=== PATIENT | female | born 1985 | race Caucasian/White ===

== ENCOUNTER → 2017-10-31 | Outpatient (CLI) | payer BC, OTHER ==
[2014-09-22 10:43] VITALS: BMI 31.5
[~2017-10-31] MED LIST: Amoxicillin/Clavulanate K PO; BUS5 PO; Docusate Sodium PO; LEVO50TA86 PO; LINA290C PO; NO ROUTINE MEDS; NORG1TAB76 PO; PANT40TA65 PO; PER PO; Pantoprazole Sod PO; [UNRECOGNIZED DRUG - OTHER]
== END ==
LOC: LAB 16:05
PROVIDERS: ATTEND Surgery
DX: R79.89 Other specified abnormal findings of blood chemistry (principal)
CPT/HCPCS: 36415; 86803

== ENCOUNTER → 2017-11-03 | Outpatient (CLI) | payer BC, OTHER ==
[2014-09-22 10:43] VITALS: BMI 31.5
[~2017-11-03] MED LIST changes: +SINCALIDE 5 MCG VIAL INJ ONE; +WATER FOR INJ,STERILE 20 ML 20 ML ONE
--- NOTE | 2017-11-03 12:13 | RADIOLOGY IMAGING REPORT ---
FACILITY: [facility] PATIENT NAME: Pauline Cabral : 1985 MR: [id number] V: [id number] EXAM DATE: ORDERING PHYSICIAN: EUNICE KIM TECHNOLOGIST: Location: [facility] - [place] Patient: Pauline Cabral : 1985 Visit/Account:[id number] Date of Sevice: 11/03/2017 HIDA W/CCK HISTORY: See Dx TECHNIQUE: 6.3 mCi Tc99m mebrofenin was injected intravenously. Multiple sequential gamma camera derrick ges of the abdomen were obtained for 78 minutes minutes. At that time, Kinevac was injected intraveno usly and an additional 30 minutes of gamma camera imaging data was acquired. A computer-generated reg ion of interest was placed around the gallbladder and time-activity curve for the gallbladder was yanet ived. The gallbladder ejection fraction was calculated. COMPARISON: Gallbladder ultrasound September 30, 2016 FINDINGS: Liver uptake and excretion: Unremarkable. Time to appearance: Bile ducts: 11 minutes. Gallbladder: 10 minutes. Duodenum: 27 minutes. Duodenal-gastric reflux / extravasation: None. Post IV Kinevac: There was delay contraction of the gallbladder Patient symptoms: None reported Ejection fraction = 31% (normal range >35%). IMPRESSION: Slightly low gallbladder ejection fraction of 31% Report Dictated By: Galilea Springer MD at 11/03/2017 12:07 PM Report E-Signed By: Galilea Springer MD at 11/03/2017 12:09 PM WSN:[id number]
== END ==
LOC: NUC 05:34
PROVIDERS: ATTEND Surgery
DX: R10.11 Right upper quadrant pain (principal)
CPT/HCPCS: 78226; A9537; J2805

== ENCOUNTER 2017-12-21 01:57 | Day surgery (SDC) | payer BC, OTHER ==
[2014-09-22 10:43] VITALS: Ht 172.7 cm; Wt 107.5 kg
[~2017-12-21] VITALS: Ht 172.7 cm; Wt 107.5 kg
[~2017-12-21 01:57] MED LIST changes: +BUSP10TA95 PO; +CALC625T80 PO; +LACT1CAP2 PO; +METH-313 PO; +MULT1CAP59 PO; +PSYL0.4C2; -SINCALIDE 5 MCG VIAL INJ ONE; -WATER FOR INJ,STERILE 20 ML 20 ML ONE; +[UNRECOGNIZED DRUG - CODE] PO
[2017-12-21 06:20] LABS: PLATELET COUNT, AUTOMATED 258 K/uL (150-450)
[2017-12-21] MEDS ORDERED: INDOCYANINE GREEN 25 MG VIAL IVP ONE (06:30)
[2017-12-21] MEDS ORDERED: NORMOSOL R SOLN(*) 1000 ML BAG 1,000 ML IV PRN (06:30)
[2017-12-21] MEDS ORDERED: MIDAZOLAM 2 MG/2 ML VIAL IVP PRN (06:30)
[2017-12-21] MEDS ORDERED: LIDOCAINE/SOD BICARB 8.4% SYR ID ONE (06:30)
[2017-12-21] MEDS ORDERED: AMPICILLIN/SULBACT (*) 3 GM VL 3 GM in NS(*) 0.9% 100 ML BAG 100 ML IVPB ONE (06:30)
[2017-12-21] MEDS ORDERED: FAMOTIDINE 20 MG TAB PO ONE (06:30)
[2017-12-21 06:34] VITALS: BP 115/80
[2017-12-21] MEDS ORDERED: ROPIVACAINE 0.5% 20 ML VIAL ONE (07:09)
[2017-12-21] MEDS ORDERED: fentaNYL CITR 250 MCG/5 ML AMP ONE (07:22)
[2017-12-21] MEDS ORDERED: PROPOFOL EMUL(*) 10MG/ML 20 ML 20 ML ONE (07:23)
[2017-12-21] MEDS ORDERED: LIDOCAINE MPF 1% 5 ML VIAL ONE (07:23)
[2017-12-21] MEDS ORDERED: DEXAMETHASONE SOD PHOS 10MG/ML ONE (07:23)
[2017-12-21] MEDS ORDERED: ONDANSETRON 4 MG/2 ML VIAL ONE (07:23)
[2017-12-21] MEDS ORDERED: NS 0.9% 20 ML SDV 20 ML ONE (07:26)
[2017-12-21] MEDS ORDERED: KETAMINE HCL 200 MG/20 ML MDV ONE (07:28)
[2017-12-21] MEDS ORDERED: ROCURONIUM BROM 10 MG/ML 10 ML ONE (07:30)
[2017-12-21] MEDS ORDERED: HALOPERIDOL LACT 5 MG/ML VIAL IM ONE (07:32)
[2017-12-21] MEDS ORDERED: SUGAMMADEX SOD 500 MG/5 ML SDV ONE (08:02)
[2017-12-21] MEDS ORDERED: fentaNYL CITR 100 MCG/2 ML AMP ONE ×2 (08:39→09:31)
[2017-12-21] MEDS ORDERED: OXYC-854 PO (09:18)
--- NOTE | 2017-12-21 09:21 | Short(Outpt) Discharge Summary ---
Discharge Summary Reason for Hosp/Final Diag: (1) Biliary dyskinesia Status: Chronic Hospital Course & Plan: Robotic cholecystectomy completed without problems. (2) Right upper quadrant abdominal pain Status: Chronic Departure Discharge to: Home, Self Care Discharge Instructions Home Meds Active Scripts Oxycodone Hcl/Acet 5/325 Mg (ENDOCET 5-325 TABLET) 1 Each Tablet, 1-2 TAB PO Q4H Y for PAIN, #30 TAB 0 Refills Prov:EUNICE KIM MD 12/21/17 Reported Medications Psyllium Husk (Metamucil) 0.4 Gram Capsule 12/13/17 Docusate Sodium (VELÁSQUEZ' LAXATIVE) 100 Mg Capsule, 100 MG PO QDAY, CAPSULE 12/13/17 Calcium Polycarbophil (FIBER TABS) 625 Mg Tablet, 500 MG PO 12/13/17 Methylcellulose (FIBER THERAPY) 500 Mg Tablet, 500 MG PO six times a day 12/13/17 Lactobacillus Rhamnosus R0011 (PROBIOTIC DIGESTIVE CARE) 1 Each Capsule, 500 CFU PO QDAY, CAPSULE 12/13/17 Multivitamin (MULTIVITAMINS) 1 Each Capsule, 1 EACH PO QDAY, CAPSULE 12/13/17 Buspirone Hcl (BUSPIRONE HCL) 10 Mg Tablet, 10 MG PO QDAY, #20 TAB 12/13/17 Levothyroxine Sodium (LEVOTHYROXINE SODIUM) 50 Mcg Tablet, 50 MCG PO QDAY 09/21/14 Norgestrel-Ethinyl Estradiol (CRYSELLE) 1 Each Tablet, 1 EACH PO 09/21/14 Follow up Referrals: General Surgery - 01/09/18 @ Surgery, General with Eunice Kim Md You have a follow up appointment scheduled with Dr. Kim on 01/09/18, at 11: 30am. Diet: Regular Activity: As Tolerated Special Instructions: You may remove the white surgical dressings on 12/23/17, then you can shower. After showering, leave the incisions open to air but leave the steristrips in place until they fall off on their own. Do not immerse the incisions for 2 weeks. EUNICE KIM MD Dec 21, 2017 09:21
--- NOTE | 2017-12-21 09:27 | Post Operative Progress Note ---
Post Operative Progress Note Date: Dec 21, 2017 Time: 09:22 Surgeon: Jazzy Dictation number: [id number] Anesthesia: GETA by Dr. Gage Pre-Op Diagnosis: Biliary dyskinesia with biliary colic Post-Op Diagnosis: GAVIN Findings: None Procedure(s): Robotic cholecystectomy Specimen Removed:(May be N/A): GB and contents Complications: None Fluids: See anesthesia record Estimated Blood Loss: Minimal Date OP Note Dictated: Dec 21, 2017 Time OP Note Dictated: 09:22 EUNICE KIM MD Dec 21, 2017 09:27
[2017-12-21 10:25] VITALS: BP 110/74
--- NOTE | 2017-12-21 11:05 | OPERATIVE REPORT 1 ---
EVENT DATE: December 21, 2017 SURGEON: Jorge Purcell M.D. ANESTHESIOLOGIST: Adeel Gage M.D. ANESTHESIA: General endotracheal anesthesia. PREOPERATIVE DIAGNOSIS Biliary dyskinesia with biliary colic. POSTOPERATIVE DIAGNOSIS Biliary dyskinesia with biliary colic. PROCEDURE Robotic cholecystectomy. COMPLICATIONS None. CONDITION Stable. ESTIMATED BLOOD LOSS Minimal. INDICATIONS Patient is a 32-year-old female who presented to my office with intermittent recurrent right upper quadrant abdominal pain made worse by eating. She was found to have on HIDA scan a low ejection fraction of 31%. She was requesting to have her gallbladder removed to relieve her symptoms. PROCEDURE The patient was brought into the operating room and placed supine on the operating table. General endotracheal anesthesia was administered and her abdomen was prepped and draped in the sterile fashion. A time-out was completed. I injected the infraumbilical skin with 0.5% ropivacaine plain. I made a curvilinear smiley face type incision in the infraumbilical rim and dissected through the dermis and into the subcutaneous fat. I identified the midline fascia, made a vertical incision in the midline fascia and then bluntly entered the peritoneal cavity with my finger. I placed 2-0 interrupted Vicryl sutures transversely through the vertical defect and inserted a 12 mm Gutierres robotic port into this wound, secured into place with suture. I insufflated the abdomen to a pressure of 50 mmHg and inserted a robotic 8 mm camera in through this port. Under direct visualization, I placed an 8 mm port in the right mid abdomen and two 8 mm ports in the left side of the abdomen, one in the left mid abdomen and one in the left upper quadrant. The robot was docked and targeted and the instruments were inserted through the ports. The table was positioned and I scrubbed out and went to the console. I grasped the fundus of the gallbladder and retracted towards the patient's right shoulder and retracted the infundibulum towards the patient's right hip. I then used the hook electrocautery to divide the peritoneum overlying the infundibulum in both the medial and lateral aspects of the gallbladder and I stripped the peritoneum and subperitoneal contents down from the infundibulum. I identified the cystic duct and identified the common bile duct using FireFly technology. I was well away from the common duct structures. I cleaned off the cystic duct as well as the cystic artery circumferentially and clipped the artery proximally and distally. I clipped the duct with one clip at the infundibulum and cystic duct junction and three clips distally in the duct. I then divided the artery between the clips and divided the duct between the upper clips. I then divided the posterior attachments of the gallbladder, from the gallbladder fossa and then the gallbladder was placed in a surgical removal bag and removed from abdomen through the umbilical port site. I irrigated and dried the right upper quadrant and noticed some oozing from down where the clips were. There was a lot of fat that was surrounding the cystic arteries and ducts and it was just coming from this area. Nothing major but I did coat it with Linda hemostatic powder. I inspected the cystic duct and artery stumps as well as the gallbladder fossa for any ongoing bleeding or bile leaks and there was none. I then removed all of the robotic instruments, undocked the robot, desufflated the abdomen and removed all the ports and closed the midline fascia with a running 0 Vicryl suture and tied all three of these down with good reapproximation of the fascial edges. I closed the skin at each port site with 0 Monocryl subcuticular suture. The skin was cleaned and steri-strips applied followed by sterile surgical dressings. The patient was awakened and extubated in the operating room and transferred to the recovery room in stable condition, having tolerated the procedure without any apparent problems. KYLIE
[2017-12-21 11:06] VITALS: BP 111/78
[2017-12-21 11:33] VITALS: BP 106/78
[2017-12-21 11:34] VITALS: BP 105/75
== END 2017-12-21 10:25 | disposition home or self-care (01) ==
LOC: OR 01:57
PROVIDERS: ATTEND Surgery
DX: K81.1 Chronic cholecystitis (principal); F32.9 Major depressive disorder, single episode, unspecified; E03.9 Hypothyroidism, unspecified; Z88.2 Allergy status to sulfonamides; Z91.013 Allergy to seafood; Z87.891 Personal history of nicotine dependence
CPT/HCPCS: 36415; 47562; 84703; 85025; 88304; J0295; J1100; J1630; J2001; J2250; J2405; J2704; J2795; J3010; J3490; J7050; S2900

== ENCOUNTER → 2019-02-27 | Outpatient (CLI) | payer BC, OTHER ==
[2014-09-22 10:43] VITALS: BMI 31.5
[~2019-02-27] MED LIST changes: +ETON1VAG7 VG; +LEVO-3 PO; +OXYC-854 PO
--- NOTE | 2019-03-05 11:39 | RADIOLOGY IMAGING REPORT ---
FACILITY[place] [facility] [place]IENT NAME: LINDA WYMAN : [id number] MR: [id number] V: [id number] EXAM DATE: [id number] ORDERING PHYSICIAN: ANA RUIZ TECHNOLOGIST: Edilberto Kessler RDMS, BRET PROCEDURE:BILATERAL DIAGNOSTIC DIGITAL MAMMOGRAM WITH CAD ASSISTED INTERPRETATION & 3D TOMOSYNTHESIS REASON FOR STUDY: Palpable lump 7 o'clock position Left breast FAMILY HISTORY OF BREAST CANCER: BREAST PROCEDURES/TREATMENTS: COMPARISON STUDIES: Limited Left breast Ultrasound performed today. MAMMOGRAM VIEWS OBTAINED: Bilateral 2D & 3D full field CC & MLO projections BREAST DENSITY: The breasts are heterogeneously dense which can obscure small masses. MAMMOGRAM FINDINGS: There is no evidence of malignant appearing mass, malignant appearing calcification or other secondary sign of malignancy in either breast. ULTRASOUND LIMITED LEFT BREAST AREA SCANNED: The 3-9 o'clock position of the Left breast ULTRASOUND FINDINGS: No sonographic abnormality is identified to account for patient's palpable findings. Therefore, clinical follow up recommended. DIAGNOSTIC CATEGORY 1--NEGATIVE. RECOMMENDATIONS: CLINICAL EVALUATION. IMPRESSION: BIRADS 1: Negative. Clinical follow up recommended for patient's palpable findings. Dictated by: Galilea Springer M.D. on 02/27/2019 at 16:13 Approved by: Galilea Springer M.D. on 03/05/2019 at 11:33 [facility]
--- NOTE | 2019-03-05 11:40 | RADIOLOGY IMAGING REPORT ---
FACILITY: [facility] - [place] PATIENT NAME: LINDA WYMAN : [id number] MR: [id number] V: [id number] EXAM DATE: [id number] ORDERING PHYSICIAN: ANA RUIZ TECHNOLOGIST: Jasmina León PROCEDURE:BILATERAL DIAGNOSTIC DIGITAL MAMMOGRAM WITH CAD ASSISTED INTERPRETATION & 3D TOMOSYNTHESIS REASON FOR STUDY: Palpable lump 7 o'clock position Left breast FAMILY HISTORY OF BREAST CANCER: BREAST PROCEDURES/TREATMENTS: COMPARISON STUDIES: Limited Left breast Ultrasound performed today. MAMMOGRAM VIEWS OBTAINED: Bilateral 2D & 3D full field CC & MLO projections BREAST DENSITY: The breasts are heterogeneously dense which can obscure small masses. MAMMOGRAM FINDINGS: There is no evidence of malignant appearing mass, malignant appearing calcification or other secondary sign of malignancy in either breast. ULTRASOUND LIMITED LEFT BREAST AREA SCANNED: The 3-9 o'clock position of the Left breast ULTRASOUND FINDINGS: No sonographic abnormality is identified to account for patient's palpable findings. Therefore, clinical follow up recommended. DIAGNOSTIC CATEGORY 1--NEGATIVE. RECOMMENDATIONS: CLINICAL EVALUATION. IMPRESSION: BIRADS 1: Negative. Clinical follow up recommended for patient's palpable findings. Dictated by: Galilea Springer M.D. on 02/27/2019 at 16:13 Transcribed by: DANO on 03/05/2019 at 11:29 Approved by: Galilea Springer M.D. on 03/05/2019 at 11:35 [facility]
== END ==
LOC: US 04:08
PROVIDERS: ATTEND Family Medicine
DX: N63.23 Unspecified lump in the left breast, lower outer quadrant (principal)
CPT/HCPCS: 77062; 77066